=== PATIENT | female | born 1940 ===

== ENCOUNTER 2016-08-05 13:43 | Emergency (ER) | payer MEDICAID ==
--- NOTE | 2016-08-13 08:11 | ER ---
ADMIT: 08/05/2016 RM/LOC: ER [facility] MR#: [id number] [id number] SAMMY MARTÍNEZ [address] [place], [place] [address] [address] [facility] Emergency Room Report SEX: F AGE: 76 : 1940 DATE: 08/05/2016 HISTORY OF PRESENT ILLNESS: The patient is a 76-year-old female, who is complaining of left rib pain. She fell 2 days ago at home into a suitcase that precisely hit in her left flank. Ever since, she has had difficulty coughing, sneezing, laughing, taking a deep breath because of pain. There is an inflamed area in the last rib space. PAST MEDICAL HISTORY: Pretty much negative except that she smokes a 3rd of a pack a day. She takes Tylenol when she needs for pain control. PHYSICAL EXAMINATION: VITAL SIGNS: Blood pressure 161/67 with a pulse of 71, respirations 18, temp is 99.7, and O2 sats 97%. Apparently, she is wearing a rib splint, which she said is pretty helpful, but her daughter in-law is the one who brought her in here for further evaluation. Physical examination as noted. Vitals as noted. The patient will be released. X-ray did not show any pathology except for discoid atelectasis in the left lower lobe. Because she is a smoker and having difficulty taking deep breath, I am going to go ahead and treat her to prevent infection in her lungs with azithromycin. Encouraged her to decrease smoking or even stop the smoking for now, hydration, follow up, and medication for pain control. BRIAN Robin / Vitor Bryant MD / siri JOB #: [id number] CC: Vitor Bryant MD, Attending Physician
== END 2016-08-05 16:55 | disposition home or self-care (01) ==
LOC: ER 13:43
DX: S20.212A Contusion of left front wall of thorax, initial encounter (principal); S30.1XXA Contusion of abdominal wall, initial encounter; M54.6 Pain in thoracic spine; F17.210 Nicotine dependence, cigarettes, uncomplicated; W20.8XXA Other cause of strike by thrown, projected or falling object, initial encounter; Y92.009 Unspecified place in unspecified non-institutional (private) residence as the place of occurrence of the external cause